=== PATIENT | male | born 1985 | race Caucasian/White ===

== ENCOUNTER → 2021-04-13 | Outpatient (CLI) | payer BC ==
[2021-04-14 02:06] LABS: PROLACTIN 4.6 ng/mL (4.0-15.2); TESTOSTERONE 318 ng/dL (264-916)
[2021-04-15 15:07] LABS: FREE TESTOSTERONE 9.2 pg/mL (8.7-25.1)
== END ==
LOC: M.LAB 11:22
PROVIDERS: ATTEND Urology
DX: N52.8 Other male erectile dysfunction (principal)